=== PATIENT | male | born 1990 | race Caucasian/White ===

== ENCOUNTER 2023-11-05 14:02 | Emergency (ER) | payer SELFPAY ==
[2023-11-05 14:10] VITALS: BP 148/81; PULSE 81; RESP 16; TEMP 36.7; O2SAT 98; BMI 25.1
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
[2023-11-05 15:01] VITALS: BP 134/80; PULSE 76; O2SAT 99
== END 2023-11-05 15:03 | disposition home or self-care (01) ==
PROVIDERS: Emergency Provider Physician Assistant
DX: T25.211A Burn of second degree of right ankle, initial encounter (principal); T25.212A Burn of second degree of left ankle, initial encounter; X03.8XXA Other exposure to controlled fire, not in building or structure, initial encounter
CPT/HCPCS: 99281